=== PATIENT | male | born 1945 ===

== ENCOUNTER 2017-02-17 15:50 | Emergency (ER) | payer OTHER ==
[2017-02-17] MEDS ORDERED: Triamcinolone Acetonide 40 MG/ML 1 ML MDV INJECT ONE (15:58)
[2017-02-17] MEDS ORDERED: diphenhydrAMINE 50 MG/ML SDV IVPUSH ONE (15:59)
--- NOTE | 2017-02-17 16:07 | EDM.PDOC ---
ED HPI GENERAL MEDICAL PROBLEM - General Chief Complaint: Respiratory Problem Stated Complaint: ALLERGIC REACTION Time Seen by Provider: 02/17/17 15:56 - History of Present Illness INITIAL COMMENTS - FREE TEXT/NARRATIVE: HISTORY AND PHYSICAL: History of present illness: Patient is a 71-year-old white male who has a history of intermittent urticaria with angioedema he states he attended 11 episodes usually requiring steroid treatment in antihistamines she states this is never required hospitalization he has seen multiple physicians and is yet to be given a clear etiology for this. Today's episode was much more extensive but is improved significantly since arrival in ED patient still would prefer treatment with triamcinolone intramuscular and Benadryl. Review of systems: As per history of present illness and below otherwise all systems reviewed and negative. Past medical history: As per history of present illness and as reviewed below otherwise noncontributory. Surgical history: As per history of present illness and as reviewed below otherwise noncontributory. Social history: No reported history of drug or alcohol abuse. Family history: As per history of present illness and as reviewed below otherwise noncontributory. Physical exam: HEENT: Atraumatic, normocephalic, pupils reactive, negative for conjunctival pallor or scleral icterus, mucous membranes moist, throat clear, neck supple, nontender, trachea midline. Lungs: Clear to auscultation, breath sounds equal bilaterally, chest nontender. Heart: S1S2, regular, negative for clicks, rubs, or JVD. Abdomen: Soft, nondistended, nontender. Negative for masses or hepatosplenomegaly. Negative for costovertebral tenderness. Pelvis: Stable nontender. Genitourinary: Deferred. Rectal: Deferred. Extremities: Atraumatic, negative for cords or calf pain. Neurovascular unremarkable. Neuro: Awake, alert, oriented. Cranial nerves II through XII unremarkable. Cerebellum unremarkable. Motor and sensory unremarkable throughout. Exam nonfocal. Skin: Scant urticarial type lesions on his upper extremities otherwise unremarkable Diagnostics: None Therapeutics: Triamcinolone 60 mg IM Benadryl 50 mg IM Impression: #1 idiopathic urticaria Definitive disposition and diagnosis as appropriate pending reevaluation and review of above. - Related Data Allergies Allergy/AdvReac Type Severity Reaction Status Date / Time No Known Allergies Allergy Verified 02/17/17 15:54 ED ROS GENERAL - Review of Systems Review Of Systems: ROS reveals no pertinent complaints other than HPI. ED EXAM, GENERAL - Physical Exam Exam: See Below (dictation) Course - Vital Signs Last Recorded V/S: Last Vital Signs Temp 35.4 C 02/17/17 15:54 Pulse 74 02/17/17 15:54 Resp 20 02/17/17 15:54 BP 205/84 H 02/17/17 15:54 Pulse Ox 98 02/17/17 15:54 - Orders/Labs/Meds Meds: Medications Discontinued Medications Generic Name Dose Route Start Last Admin Trade Name Gregorio PRN Reason Stop Dose Admin Diphenhydramine HCl 50 mg 02/17/17 15:59 Benadryl IVPUSH 02/17/17 16:00 ONETIME ONE Triamcinolone Acetonide 60 mg 02/17/17 15:58 Kenalog-40 INJECT 02/17/17 15:59 ONETIME ONE Departure - Departure Time of Disposition: 16:03 Disposition: Home, Self-Care 01 Condition: Good Clinical Impression: Urticaria - Discharge Information Additional Instructions: The following information is given to patients seen in the emergency department who are being discharged to home. This information is to outline your options for follow-up care. We provide all patients seen in our emergency department with a follow-up referral. The need for follow-up, as well as the timing and circumstances, are variable depending upon the specifics of your emergency department visit. If you don't have a primary care physician on staff, we will provide you with a referral. We always advise you to contact your personal physician following an emergency department visit to inform them of the circumstance of the visit and for follow-up with them and/or the need for any referrals to a consulting specialist. The emergency department will also refer you to a specialist when appropriate. This referral assures that you have the opportunity for followup care with a specialist. All of these measure are taken in an effort to provide you with optimal care, which includes your followup. Under all circumstances we always encourage you to contact your private physician who remains a resource for coordinating your care. When calling for followup care, please make the office aware that this follow-up is from your recent emergency room visit. If for any reason you are refused follow-up, please contact the [facility] emergency department at and asked to speak to the emergency department charge nurse Leroy as directed Ash as directed follow-up private medical doctor on today's return as needed as discussed]
== END 2017-02-17 16:40 | disposition home or self-care (01) ==
LOC: MW.ED 15:50
DX: L50.1 Idiopathic urticaria (principal)
CPT/HCPCS: 93005; 96372; 99283; J1200; J3301; 99282